=== PATIENT | female | born 1995 | race Two or more races ===

== ENCOUNTER 2022-04-15 04:49 | Inpatient (IN) | payer OTHER ==
[~2022-04-15] VITALS: Ht 165.1 cm; Wt 81.6 kg
== END 2022-04-17 11:40 | disposition home or self-care (01) | DRG 807 ==
LOC: OB/GYN 04:49 → LDR 04:49 → OB/GYN 08:09
PROVIDERS: ADMIT Obstetrics & Gynecology Gynecology; ATTEND Obstetrics & Gynecology Gynecology
PROC: 10E0XZZ Delivery of Products of Conception, External Approach (ICD-10-PCS; principal; 2022-04-15)
PROC: 4A1HXCZ Monitoring of Products of Conception, Cardiac Rate, External Approach (ICD-10-PCS; 2022-04-15)
DX: O80 Encounter for full-term uncomplicated delivery (principal); Z37.0 Single live birth; Z3A.38 38 weeks gestation of pregnancy; Z20.822 Contact with and (suspected) exposure to COVID-19